=== PATIENT | male | born 1995 | race Caucasian/White ===

== ENCOUNTER 2021-02-21 01:34 | Emergency (ER) | payer BC, SELFPAY ==
--- OUTSIDE RECORDS SUMMARY | 2021-02-21 01:37 | XMS REPORT | Continuity of Care Document ---
:1995 Author Organization [facility] Address [address] [place] [address] Care Team Providers Name Role Phone KELLY_RODOLFO Attending Clinician Unavailable [email or web address] Admitting Clinician Unavailable Payers Payer Name Policy Type Policy Number Effective Date Expiration Date S sarah [facility] [place] [id number] [employer]AN Problems Condition Condition Condition Status Onset Resolution Last Treating Co mments Source Name Details Category Date Date Treatment Clinician Date Bipolar Bipolar Problem Active 2017-02 [place] disorder Disorder 0-22 [facility] 00[facility] Allergies, Adverse Reactions, Alerts This patient has no known allergies or adverse reactions. Social History Smoking Status Start Date Stop Date Source Former Smoker [place] [facility] Medications Ordered Filled Start Stop Current Ordering Indication Dosage Frequency Signature Comments Components Source Medication Medication Date Date Medication? Clinician (SIG) Name Name buspirone buspirone No 1 TID buspirone [place] 15 mg 15 mg 15 mg da tablet Take tablet Take tablet [facility] 1 tablet 3 1 tablet 3 Take 1 a l times a day times a day tablet 3 Health by oral by oral times a Outrea c route. route. day by h oral Program route. Fluarix Fluarix No Fluarix [place] Quad Quad Quad da [facility] (PF) 60 mcg (PF) 60 mcg (PF) 60 al (15 mcg x (15 mcg x mcg (15 He alth 4)/0.5 mL 4)/0.5 mL mcg x Outr eac IM syringe IM syringe 4)/0.5 mL h IM syringe Program promethazin promethazin No promethazi [place] e 25 mg e 25 mg ne 25 mg da tablet tablet tablet [facility] quetiapine quetiapine No 3 Q1D quetiapine [place] 400 mg 400 mg 400 mg da tablet Take tablet Take tablet [facility] 3 tablets 3 tablets Take 3 al every day every day tablets He alth by oral by oral every day Outr eac route at route at by oral h bedtime. bedtime. route at Pro gram bedtime. Wellbutrin Wellbutrin No 1 Q1D Wellbutrin [place] XL 300 mg XL 300 mg XL 300 mg da 24 hr 24 hr 24 hr [facility] tablet, tablet, tablet, al extended extended extended Hea lth release release release Outrea c Take 1 Take 1 Take 1 h tablet tablet tablet Program every day every day every day by oral by oral by oral route in route in route in the the the morning. morning. morning. Procedures This patient has no known procedures. Plan of Care Planned Activity Planned Date Details Comments Source Future Scheduled Test 2019-09-03 CMP, serum or [place] Rastafari 00:00:00 plasma [code = Health Outrea CMP, serum or Program plasma] Future Scheduled Test 2019-09-03 lipid panel, [place] [employer] worker Rastafari 00:00:00 serum [code = Health Outreac h lipid panel, Program serum] Instructions [place] [facility] Encounters Start End Encounter Admission Attending Care Care Encounter Source Date/Time Date/Time Type Type Clinicians Facility Department ID 2020-01-20 2020-01-20 Outpatient [facility] [id number] [place] 01:02:00 01:02:00 H [id number] [facility] 2019-12-16 2019-12-16 Outpatient [facility] [id number] [place] 01:04:00 01:04:00 H [id number] [facility] 2019-11-18 2019-11-18 Outpatient [facility] [id number] [place] 12:15:00 12:15:00 H [id number] [facility] 2019-10-05 2019-10-05 Outpatient [facility] [id number] [place] 12:56:00 12:56:00 H [id number] [facility] 2019-08-31 2019-08-31 Outpatient [facility] [id number] [place] 12:41:00 12:41:00 H [id number] [facility] 2019-08-23 2019-08-23 Outpatient [facility] [id number] [place] 03:45:00 03:45:00 H [id number] [facility] 2019-08-23 2019-08-23 Rodolfo [place] - [id number] M [place] 00:00:00 00:00:00 Surjit Jeffers MD: [facility] [address] [facility] [address] [facility] [address] [facility] , Ph. [phone] 2019-07-27 Outpatient [facility] [id number] [place] 12:38:00 12:38:00 H [id number] [facility] 2019-06-22 2019-06-22 Outpatient [facility] [id number] [place] 12:26:00 12:26:00 H [id number] [facility] 2019-05-31 2019-05-31 Outpatient [facility] [id number] [place] 02:42:00 02:42:00 H [id number] [facility] 2019-05-31 2019-05-31 Rodolfo [place] - [id number] M [place] 00:00:00 00:00:00 Surjit Jeffers MD: [facility] [address] [facility] [address] [facility] , Ph. [phone] 2019-01-28 Rodolfo [place] - [id number] M at[place]or 00:00:00 00:00:00 Surjit Jeffers MD: [facility] [address] [facility] [address] [facility] [address], [facility] [address] , Ph. [phone] 2018-11-02 [facility] [place] - [id number] M mic 00:00:00 00:00:00 Surjit Jeffers MD: [facility] [address] [facility] [address], [facility] [address] , Ph. [phone] Results This patient has no known results.
[2021-02-21 03:45] LABS: SARS-COV-2 RT PCR POSITIVE (NEGATIVE)
--- NOTE | 2021-02-21 04:27 | EDPHYS ---
Physician Documentation [facility] Name: Miquel Bettencourt Age: 25 yrs Sex: Male : 1995 Arrival Date: 02/21/2021 Time: 01:40 Bed 19 Private MD: ED Physician Mamadou Doherty HPI: 02/21 02:10 This 25 yrs old Male presents to ER via Ambulatory with complaints of Fever. cp 02:10 The patient reports fever, that was measured at 105 degrees Fahrenheit. Onset: The cp symptoms/episode began/occurred yesterday. Associated signs and symptoms: Pertinent positives: arthralgias, cough, runny nose, episode of right side chest pain, now resolved, Pertinent negatives: abdominal pain, diarrhea, nausea, vomiting. Severity of symptoms: in the emergency department the symptoms have improved. 02:10 Patient reports taking OTC Motrin last evening. cp Historical: - Allergies: 02:03 No Known Allergies; kd3 - Home Meds: 02:03 None [Active]; kd3 - PSHx: 02:03 None; kd3 - Immunization history:: Adult Immunizations not up to date. - Social history:: Smoking status: Patient denies any tobacco usage or history of. e cigarette . ROS: 02:15 Constitutional: Positive for body aches, chills, Negative for fever, poor PO intake. cp 02:15 Respiratory: Positive for cough, Negative for shortness of breath, wheezing. cp 02:15 Eyes: Negative for injury, pain, redness, and discharge. cp 02:15 ENT: Negative for drainage from ear(s), ear pain, sore throat, difficulty swallowing, difficulty handling secretions. 02:15 Neck: Negative for pain with movement, pain at rest, stiffness. 02:15 Abdomen/GI: Negative for abdominal pain, vomiting, diarrhea, constipation. 02:15 : Negative for urinary symptoms. 02:15 Neuro: Negative for dizziness, headache, weakness. 02:15 All other systems are negative. Exam: 02:20 Constitutional: The patient appears in no acute distress, alert, awake, non-toxic, well cp developed, well nourished. 02:20 Head/Face: Normocephalic, atraumatic. cp 02:20 Eyes: Periorbital structures: appear normal, Conjunctiva: normal, no exudate, no injection, Lids and lashes: appear normal, bilaterally. 02:20 ENT: External ear(s): are unremarkable, Ear canal(s): are normal, clear, TM's: bulging, is not appreciated, bilaterally, dullness, bilaterally, erythema, is not appreciated, bilaterally, Nose: is normal, Mouth: Lips: moist, Oral mucosa: moist, Posterior pharynx: Airway: no evidence of obstruction, patent, Tonsils: no enlargement, no exudate, erythema, that is mild, exudate, is not appreciated. 02:20 Neck: ROM/movement: is normal, is supple, without pain, no range of motions limitations, no meningismus, Lymph nodes: no appreciated lymphadenopathy. 02:20 Chest/axilla: Inspection: normal, Palpation: is normal, no crepitus, no tenderness. 02:20 Cardiovascular: Rate: normal, Rhythm: regular. 02:20 Respiratory: the patient does not display signs of respiratory distress, Respirations: normal, no use of accessory muscles, no retractions, labored breathing, is not present, Breath sounds: decreased breath sounds, are not appreciated, stridor, is not appreciated, wheezing: is not appreciated. 02:20 Abdomen/GI: Exam negative for discomfort, distension, guarding, Inspection: abdomen appears normal. 02:20 Neuro: Orientation: to person, place \\T\\ time. Mentation: is normal, Motor: moves all fours, strength is normal. Vital Signs: 02:13 BP 129 / 84; Pulse 92; Resp 19; Temp 99.7; Pulse Ox 98% ; kd3 03:54 BP 125 / 75; Pulse 84; Resp 16; Pulse Ox 100% ; kd3 04:34 BP 123 / 68; Pulse 84; Resp 16; Pulse Ox 100% on R/A; kd3 MDM: 02:00 Patient medically screened. cp 02:20 Differential diagnosis: viral Infection, bacterial infection, bronchitis, pneumonia cp meningitis. 03:24 Test interpretation: by ED physician or midlevel provider: chest xray negative for cp focal pneumonia. Transition of care: After a detail discussion of the patient's case, care is transferred to Mamadou Doherty MD. 04:25 Data reviewed: vital signs, nurses notes. ED course: Patient is COVID-19 positive and sp3 continues to have normal vital signs and is not hypoxic. Will discharge patient home for home recovery at this time.. 02/21 02:09 Order name: COVID-19/FLU A+B (Document "Date of Onset" if Symptomatic) cp 02/21 02:09 Order name: Strep cp 02/21 02:09 Order name: XRAY Chest Pa And Lat (2 Views) cp 02/21 03:45 Order name: Throat Culture EDMS Administered Medications: No medications were administered Disposition: 04:25 I agree with the assessment and plan of care. PA/DRUM PRINTER's history reviewed, patient sp3 interviewed, and examined. Disposition Summary: 02/21/21 04:26 Discharge Ordered Location: Home sp3 Condition: Stable sp3 Diagnosis - SARS-associated coronavirus as the cause of diseases classified elsewhere sp3 Followup: sp3 - With: Private Physician - When: Upon discharge from the Emergency Department - Reason: Continuance of care Discharge Instructions: - Discharge Summary Sheet sp3 - COVID-19 sp3 - 10 Things You Can Do to Manage Your COVID-19 Symptoms at Home - [facility] sp3 Forms: - Medication Reconciliation Form sp3 - Thank You Letter sp3 - Antibiotic Education sp3 - Prescription Opioid Use sp3 Signatures: Dispatcher [employer] EDMS Juan Obregon PA PA cp Patel, Setul, MD MD sp3 Oliva Huang RN RN kd3
--- NOTE | 2021-02-21 04:27 | ER ---
Nurse's Notes [facility] Name: Miquel Bettencourt Age: 25 yrs Sex: Male : 1995 Arrival Date: 02/21/2021 Time: 01:40 Bed 19 Private MD: Diagnosis: SARS-associated coronavirus as the cause of diseases classified elsewhere Presentation: 02/21 02:00 Chief complaint: Patient states: "my at home thermometer has been reading 102 to 105 kd3 since 10 pm. I've also been getting confused sometimes. I took ibuprofen around 11:40.". Coronavirus screen: Vaccine status: Patient reports receiving the 1st dose of the Covid vaccine. Ebola Screen: No symptoms or risks identified at this time. Initial Sepsis Screen: Does the patient meet any 2 criteria? No. Patient's initial sepsis screen is negative. Does the patient have a suspected source of infection? No. Patient's initial sepsis screen is negative. Risk Assessment: Do you want to hurt yourself or someone else? Patient reports no desire to harm self or others. Onset of symptoms was February 20, 2021. 02:00 Method Of Arrival: Ambulatory kd3 02:00 Acuity: LAI 4 kd3 Triage Assessment: 02:04 General: Appears in no apparent distress. Behavior is calm, cooperative, appropriate kd3 for age. Pain: Complains of pain in headache, generalized body aches. Historical: - Allergies: 02:03 No Known Allergies; kd3 - Home Meds: 02:03 None [Active]; kd3 - PSHx: 02:03 None; kd3 - Immunization history:: Adult Immunizations not up to date. - Social history:: Smoking status: Patient denies any tobacco usage or history of. e cigarette . Screenin:04 Abuse screen: Denies threats or abuse. Denies injuries from another. Nutritional kd3 screening: No deficits noted. Tuberculosis screening: No symptoms or risk factors identified. Fall Risk None identified. Assessment: 04:34 Reassessment: No changes from previously documented assessment. Patient and/or family kd3 updated on plan of care and expected duration. Pain level reassessed. Patient is alert, oriented x 3, equal unlabored respirations, skin warm/dry/pink. see triage notes. Vital Signs: 02:13 BP 129 / 84; Pulse 92; Resp 19; Temp 99.7; Pulse Ox 98% ; kd3 03:54 BP 125 / 75; Pulse 84; Resp 16; Pulse Ox 100% ; kd3 04:34 BP 123 / 68; Pulse 84; Resp 16; Pulse Ox 100% on R/A; kd3 ED Course: 01:40 Patient arrived in ED. bp1 01:53 Juan Obregon PA is PHCP. cp 01:53 Mamadou Doherty MD is Attending Physician. cp 01:54 Oliva Huang, [place] is Primary Nurse. kd3 02:03 Triage completed. kd3 02:05 Arm band placed on right wrist. kd3 02:05 Patient has correct armband on for positive identification. Placed in gown. Bed in low kd3 position. 02:26 Strep Sent. vc1 02:26 COVID-19/FLU A+B (Document "Date of Onset" if Symptomatic) Sent. vc1 03:27 XRAY Chest Pa And Lat (2 Views) In Process Unspecified. EDMS 04:35 No provider procedures requiring assistance completed. Patient did not have IV access kd3 during this emergency room visit. Administered Medications: No medications were administered Outcome: 04:26 Discharge ordered by . sp3 04:35 Discharged to home kd3 04:35 Condition: stable 04:35 Condition: stable 04:35 Discharge instructions given to patient. 04:37 Patient left the ED. kd3 Signatures: Dispatcher [employer] EDMS Juan Obregon PA PA cp Tanesha Huggins [facility] Mamadou Doherty MD MD sp3 Oliva Huang RN RN kd3 Brianna Kyle RN RN vc1
[2021-02-21 04:44] VITALS: TEMP 99.7; O2SAT 100
[2021-02-21 04:45] VITALS: BP 123/68
--- NOTE | 2021-02-21 08:43 | RAD REPORT ---
EXAM DESCRIPTION: RAD - Chest Pa And Lat (2 Views) - 02/21/2021 3:28 am CLINICAL HISTORY: Cough;Fever COMPARISON: None TECHNIQUE: Frontal and lateral views of the chest were obtained. FINDINGS: The lungs are clear. Heart size is normal and central vasculature is within normal limit s. No pleural effusion or pneumothorax seen. No acute bony finding noted. No aortic abnormality. IMPRESSION: No acute cardiopulmonary process.
== END 2021-02-21 04:37 | disposition home or self-care (01) ==
LOC: ER 01:34
DX: U07.1 COVID-19 (principal)
CPT/HCPCS: 87070; 87081; 0240U; 71046; 99283